=== PATIENT | female | born 2000 | race Caucasian/White ===

== ENCOUNTER 2022-10-02 19:15 | Inpatient (IN) | payer BC ==
[2022-10-02 20:37] VITALS: BMI 26.6
[2022-10-02] MEDS ORDERED: DINOPROSTONE 10 MG VAGINAL SUPPOSITORY VG ONE (20:45)
[2022-10-02] MEDS ORDERED: ELECTROLYTE-148 SOLN 1,000 ML IV SCH (20:45)
[2022-10-02 20:50] LABS: BASO % 0.4 % (0-2.0); EOS % 0.6 % (0-4.5); HEMOGLOBIN 9.3 GM/dL (10.7-15.3); LYMPH % 18.2 % (8-40); MCH 22.8 pg (25.7-33.7); MCHC 32.1 g/dl (32.0-36.0); MEAN CELL VOLUME 71.2 fl (80-96); MEAN PLT VOLUME 9.5 fl (7.5-11.1); MONO % 4.9 % (3.8-10.2); NEUT % 75.9 % (42.8-82.8); PLATELET COUNT 350 10^3/uL (134-434); RBC 4.07 M/mm3 (3.60-5.2); WHITE BLOOD COUNT 10.7 K/mm3 (4.0-10.0)
[2022-10-02 20:57] LABS: INR 1.01 (0.83-1.09); PROTHROMBIN TIME (PATIENT) 11.7 SEC (9.7-13.0)
[2022-10-02 21:00] LABS: ACTIVATED PTT 29.3 SECONDS (25.2-36.5)
[2022-10-02 21:17] LABS: BLOOD UREA NITROGEN 8.6 mg/dL (7-18)
[2022-10-02 21:20] LABS: CREATININE 0.6 mg/dL (0.55-1.3)
[2022-10-02 22:13] LABS: HIV INTERPRETATION NEGATIVE (NEGATIVE)
[2022-10-03] MEDS ORDERED: FENTANYL/BUPIVACAINE/NS/PF - PCEA - 50 ML DISP.SYRIN EP ONE ×3 (03:00→09:37)
[2022-10-03] MEDS ORDERED: BUPIVACAINE HCL/PF 0.25% (2.5MG/ML) 10 ML VIAL ONE (03:09)
[2022-10-03] MEDS: FENTANYL/BUPIVACAINE/NS/PF - PCEA - 50 ML DISP.SYRIN EP SCH ×3 (03:37→09:40)
[2022-10-03] MEDS ORDERED: NALOXONE HCL 0.4 MG/ML VIAL IVPUSH PRN (03:45)
[2022-10-03] MEDS ORDERED: AMPICILLIN - 2 GM in DEXTROSE 5%-WATER 100 ML IVPB ONE (06:30)
[2022-10-03] MEDS ORDERED: OXYTOCIN 30 UNITS in 0.9% NS 30 UNIT/500 ML INFUS.BAG IVPB SCH (06:30)
[2022-10-03] MEDS ORDERED: OXYTOCIN 30 UNITS in 0.9% NS 30 UNIT/500 ML INFUS.BAG IVPB ONE (06:32)
[2022-10-03] MEDS ORDERED: AMPICILLIN SODIUM 2 GM VIAL ONE (06:32)
[2022-10-03] MEDS ORDERED: AMPICILLIN SODIUM 1 GM VIAL ONE (09:41)
[2022-10-03] MEDS ORDERED: OXYTOCIN 20 UNITS in 0.9% NS 20 UNIT/1,000 ML INFUS.BAG IV ONE (10:30)
[2022-10-03] MEDS ORDERED: AMPICILLIN - 1 GM in DEXTROSE 5%-WATER 100 ML IVPB SCH (10:30)
[2022-10-03] MEDS ORDERED: LIDOCAINE HCL 1% PRESERVATIVE FREE - 30ML VIAL ONE (10:31)
[2022-10-03] MEDS ORDERED: ACETAMINOPHEN 325 MG TABLET (FP) PO PRN ×2 (12:12→15:49)
[2022-10-03] MEDS ORDERED: BENZOCAINE 20% 57 GM BOTTLE TP PRN ×2 (12:12→15:49)
[2022-10-03] MEDS ORDERED: BENZOCAINE 28 GM HEMORRHOIDAL OINTMENT TP PRN ×2 (12:12→15:49)
[2022-10-03] MEDS ORDERED: WITCH HAZEL 50% (TUCKS) 40 PAD/JAR PAD TP PRN ×2 (12:12→15:49)
[2022-10-03] MEDS ORDERED: BISACODYL 10 MG SUPP.RECT RC PRN ×2 (12:12→15:49)
[2022-10-03] MEDS ORDERED: oxyCODONE HCL 5 MG TABLET PO PRN ×2 (12:12→15:49)
[2022-10-03] MEDS ORDERED: METHYLERGONOVINE MALEATE 0.2 MG/1 ML AMP IM PRN ×2 (12:12→15:49)
[2022-10-03] MEDS ORDERED: OXYTOCIN 20 UNITS in 0.9% NS 20 UNIT/1,000 ML INFUS.BAG IV SCH ×2 (12:15→16:00)
[2022-10-03] MEDS ORDERED: IBUPROFEN 600 MG TABLET (FP) PO ONE (12:58)
[2022-10-03] MEDS ORDERED: ACETAMINOPHEN INJECTION 100 ML IVPB ONE (13:19)
[2022-10-03] MEDS ORDERED: ONDANSETRON 4 MG/2 ML VIAL ONE (13:19)
[2022-10-03] MEDS ORDERED: ONDANSETRON 4 MG/2 ML VIAL IVPB ONE (13:30)
[2022-10-03] MEDS ORDERED: ACETAMINOPHEN 1000 MG/100 ML BAG IVPB ONE (13:30)
[2022-10-03] MEDS: IBUPROFEN 600 MG TABLET (FP) PO PRN (15:22)
[2022-10-03] MEDS ORDERED: IBUPROFEN 600 MG TABLET (FP) PO PRN (15:49)
[2022-10-04] MEDS: IBUPROFEN 600 MG TABLET (FP) PO PRN ×2 (02:00→10:06)
[2022-10-04 07:07] LABS: BASO % 0.3 % (0-2.0); EOS % 0.1 % (0-4.5); HEMATOCRIT 20.4 % (32.4-45.2); LYMPH % 14.6 % (8-40); MCH 23.5 pg (25.7-33.7); MCHC 32.4 g/dl (32.0-36.0); MEAN CELL VOLUME 72.6 fl (80-96); MEAN PLT VOLUME 9.3 fl (7.5-11.1); MONO % 4.3 % (3.8-10.2); NEUT % 80.7 % (42.8-82.8); PLATELET COUNT 314 10^3/uL (134-434); RBC 2.81 M/mm3 (3.60-5.2); RDW 15.1 % (11.6-15.6); WHITE BLOOD COUNT 15.4 K/mm3 (4.0-10.0)
[2022-10-04 07:28] LABS: HEMOGLOBIN 6.6 GM/dL (10.7-15.3)
[2022-10-04] MEDS: FERROUS SO4 325 MG TABLET (FP) PO SCH ×2 (10:53→22:41)
[2022-10-04] MEDS: FENTANYL/BUPIVACAINE/NS/PF - PCEA - 50 ML DISP.SYRIN EP SCH (19:11)
[2022-10-04 19:54] LABS: BASO % 0.2 % (0-2.0); EOS % 0.6 % (0-4.5); HEMATOCRIT 21.8 % (32.4-45.2); LYMPH % 17.3 % (8-40); MCH 22.4 pg (25.7-33.7); MCHC 31.3 g/dl (32.0-36.0); MEAN CELL VOLUME 71.8 fl (80-96); MEAN PLT VOLUME 9.4 fl (7.5-11.1); MONO % 4.3 % (3.8-10.2); NEUT % 77.6 % (42.8-82.8); PLATELET COUNT 356 10^3/uL (134-434); RBC 3.03 M/mm3 (3.60-5.2); RDW 15.4 % (11.6-15.6); WHITE BLOOD COUNT 12.8 K/mm3 (4.0-10.0)
[2022-10-04 20:07] LABS: HEMOGLOBIN 6.8 GM/dL (10.7-15.3)
[2022-10-04 21:39] VITALS: RESP 18
[2022-10-04] MEDS ORDERED: SENNOSIDES/DOCUSATE COMBO (SENNA PLUS) TABLET (UD) PO PRN ×2 (22:00)
[2022-10-05] MEDS: IBUPROFEN 600 MG TABLET (FP) PO PRN ×2 (00:28→10:53)
[2022-10-05 09:33] VITALS: BP 114/78; PULSE 92; TEMP 97.6
[2022-10-05] MEDS: FERROUS SO4 325 MG TABLET (FP) PO SCH (10:53)
== END 2022-10-05 13:40 | disposition home or self-care (01) | DRG 560 ==
LOC: JLDR 19:15 → J3W 10-03 15:30
PROVIDERS: ADMIT Specialist; ATTEND Specialist
PROC: 10E0XZZ Delivery of Products of Conception, External Approach (ICD-10-PCS; principal; 2022-10-03)
PROC: 0W8NXZZ Division of Female Perineum, External Approach (ICD-10-PCS; 2022-10-03)
PROC: 3E0P7VZ Introduction of Hormone into Female Reproductive, Via Natural or Artificial Opening (ICD-10-PCS; 2022-10-03)
DX: O48.0 Post-term pregnancy (principal); O66.0 Obstructed labor due to shoulder dystocia; O77.0 Labor and delivery complicated by meconium in amniotic fluid; O90.81 Anemia of the puerperium; O99.824 Streptococcus B carrier state complicating childbirth; Z3A.40 40 weeks gestation of pregnancy; Z37.0 Single live birth
CPT/HCPCS: 36415; 59409; 80048; 85025; 85610; 85730; 86780; 86850; 86900; 86901; 87389; C9803-CS; U0003; U0005